=== PATIENT | male | born 1995 | race Caucasian/White ===

== ENCOUNTER 2016-10-02 10:36 | Emergency (ER) | payer OTHER ==
[2016-10-02 10:49] VITALS: BMI 27.2
--- NOTE | 2016-10-02 10:52 | PDOC ---
History of Present Illness <Louann Lyons - Last Filed: 10/02/16 12:22> - History of Present Illness Initial Comments: 10/02/16 11:15 Patient is a 21-year-old male with past medical history varicocele, epididymitis who presents to the emergency department today complaining of epigastric pain and testicular pain/swelling. Patient states that he has had both of these complaints intermittently for about a year. He states that today he has had some sharp pain in his epigastric region. He states he also feels like his feces is backing up to his stomach and that he feels constipated. He states his last bowel movement was this morning and it was normal for him in color and size. Denies diarrhea. He also states that he feels like his testicles are more swollen than usual. And he states that he feels like the pain from his left varicocele is moving to the right side. Denies fevers, chills, weakness, shortness of breath, chest pain, vomiting, diarrhea, frequency, urgency, hematuria and discharge. <Estrellita Valentine - Last Filed: 10/02/16 14:47> - General Chief Complaint: Pain Stated Complaint: ABD PAIN Time Seen by Provider: 10/02/16 10:47 Past History <Louann Lyons - Last Filed: 10/02/16 12:22> - Travel Traveled outside of the country in the last 30 days: No Close contact w/someone who was outside of country & ill: No - Immunization History Immunization Up to Date: Yes - Psycho/Social/Smoking Cessation Hx Suicidal Ideation: No Smoking History: Current every day smoker Have you smoked in the past 12 months: Yes Number of Cigarettes Smoked Daily: 3 Information on smoking cessation initiated: No 'Breaking Loose' booklet given: 08/06/15 Hx Alcohol Use: No (denies) Drug/Substance Use Hx: Yes (smokes marijuana) Substance Use Type: Alcohol, Marijuana <Estrellita Valentine - Last Filed: 10/02/16 14:47> - Past Medical History Allergies/Adverse Reactions: Allergies Allergy/AdvReac Type Severity Reaction Status Date / Time No Known Allergies Allergy Verified 10/02/16 10:49 Home Medications: Ambulatory Orders NK [No Known Home Medication] 10/02/16 Review of Systems - Review of Systems Able to Perform ROS?: Yes Is the patient limited [place] Citizen proficient: No <Estrellita Valentine - Last Filed: 10/02/16 14:47> *Physical Exam - Vital Signs Last Vital Signs Temp Pulse Resp BP Pulse Ox 98.1 F 77 18 148/89 100 10/02/16 10:46 10/02/16 10:46 10/02/16 10:46 10/02/16 10:46 10/02/16 10:46 <Louann Lyons - Last Filed: 10/02/16 12:22> - Vital Signs Last Vital Signs Temp Pulse Resp BP Pulse Ox 98.1 F 77 18 148/89 100 10/02/16 10:46 10/02/16 10:46 10/02/16 10:46 10/02/16 10:46 10/02/16 10:46 - Physical Exam Comments: 10/02/16 11:15 GENERAL: Well developed, well nourished. AAOx3. No acute distress, breathing easily on exam bed. HEENT: Normocephalic, atraumatic. PERRLA, EOMI. No conjunctival pallor. Sclera are non- icteric. Moist mucous membranes. Oropharynx is clear. NECK: Supple. Full ROM. No JVD. Carotid pulses 2+ and symmetric, without bruits. No thyromegaly. No lymphadenopathy. CARDIOVASCULAR: Regular rate and rhythm. No murmurs, rubs, or gallops. Distal pulses are 2+ and symmetric. PULMONARY: No evidence of respiratory distress. Lungs clear to auscultation bilaterally. No wheezing, rales or rhonchi. ABDOMINAL: TTP with deep palpation of the epigastric region, (+)? alonzo's sign. Diffuse tenderness with mild tenderness. Soft. Non-distended. No rebound or guarding. No organomegaly. Normoactive bowel sounds. MUSCULOSKELETAL Normal range of motion at all joints. No bony deformities or tenderness. No CVA tenderness. EXTREMITIES: No cyanosis. No clubbing. No edema. No calf tenderness. SKIN: Warm and dry. Normal capillary refill. No rashes. No jaundice. NEUROLOGICAL: Alert, awake, appropriate. Cranial nerves 2-12 intact. No deficits to light touch and temperature in face, upper extremities and lower extremities. No motor deficits in the in face, upper extremities and lower extremities. Normoreflexic in the upper and lower extremities. Normal speech. Toes are down- going bilaterally. Gait is normal without ataxia. PSYCHIATRIC: Cooperative. Good eye contact. Appropriate mood and affect. TESTICULAR: Circumcised penis, no obvious drainage, or rashes noted. Testicles are decended and in the sack, freely moving. Testicles with b/l vericoceles palpated. TTP of the R testicle. (+) cremasteric reflex present b/l <Estrellita Valentine - Last Filed: 10/02/16 14:47> Procedures - Bedside Ultrasound Bedside Ultrasound: Gallbladder Other: gallbadder and renal ultrasound see mdm <Louann Lyons - Last Filed: 10/02/16 12:22> ED Treatment Course - LABORATORY CBC & Chemistry Diagram: 10/02/16 11:43 10/02/16 11:43 - ADDITIONAL ORDERS Additional order review: Laboratory Results 10/02/16 11:43 Urine Color Straw Urine Appearance Clear Urine pH 6.0 Urine Protein Negative Urine Glucose (UA) Negative Urine Ketones Negative Urine Blood Negative Urine Nitrite Negative Urine Bilirubin Negative Urine Urobilinogen Negative Ur Leukocyte Esterase Negative 10/02/16 11:43 RBC 4.93 MCV 94.7 MCHC 33.8 RDW 13.3 MPV 8.5 Neutrophils % 53.5 Lymphocytes % 35.5 Monocytes % 7.1 Eosinophils % 3.4 Basophils % 0.5 - Medications Given in the ED: ED Medications Discontinued Medications Generic Name Dose Route Start Last Admin Trade Name Freq PRN Reason Stop Dose Admin Ondansetron HCl 4 mg 10/02/16 11:05 10/02/16 11:34 Zofran Odt - SL 10/02/16 11:06 4 mg ONCE ONE Administration Sodium Chloride 1,000 ml 10/02/16 11:02 10/02/16 11:34 Normal Saline - IV 10/02/16 11:03 1,000 ml ONCE ONE Administration <Louann Lyons - Last Filed: 10/02/16 12:22> - LABORATORY CBC & Chemistry Diagram: 10/02/16 11:43 10/02/16 11:43 <Estrellita Valentine - Last Filed: 10/02/16 14:47> Medical Decision Making - Medical Decision Making 10/02/16 12:22 focused ED ultrasound RUQ : indication epigastric pain Gallbladder scanned in two planes, saggital and transverse. no stones. no wall thickening or edema or pericholecystic fluid noted. wall measured 1.6 mm CBD measured < 4 mm negative sonographic alonzo's impressions: normal gallbladder focused ED ultrasound renal : indication suprapubic abd pain bilateral kidneys scanned no hydronephrosis noted. bladder nondistended. impression: normal renal ultrasound. alexis <Louann Lyons - Last Filed: 10/02/16 12:22> *DC/Admit/Observation/Transfer <Louann Lyons - Last Filed: 10/02/16 12:22> - Discharge Dispostion Admit: No <Estrellita Valentine - Last Filed: 10/02/16 14:47> Diagnosis at time of Disposition: Varicocele present on ultrasound of scrotum Constipation Qualifiers: Constipation type: unspecified constipation type Qualified Code(s): K59.00 - Constipation, unspecified - Discharge Dispostion Condition at time of disposition: Good - Referrals Referrals: Nano Weldon MD [Primary Care Provider] - Thien Mckeon MD [Staff Physician] - - Patient Instructions Printed Discharge Instructions: DI for Constipation Additional Instructions: Your ultrasound of your scrotum showed no change in your varicocele. There was no evidence of infection. Wear scrotal supports to help with the pain. There is no urinary tract infection. Your abdomen x-ray showed a moderate amount of stool. Eat a diet high in fiber, with plenty of fruits and vegitables. Drink plenty of water. Doing these things will help to reduce your consitpation. You should avoid binding foods such as cheeses, potatos, rices to help keep you regular. You should also try avoiding dairy to see if it helps with your stomach pain. You may take Miralax to soften your stool as necessary. Follow up with the stomach doctor, the urologist and your primary care doctor for management of your symptoms. - Post Discharge Activity Work/School Note: Back to Work
[2016-10-02] MEDS ORDERED: SODIUM CHLORIDE 0.9% 1000 ML INFUS.BAG IV ONE (11:02)
[2016-10-02] MEDS ORDERED: ONDANSETRON *ODT* 4 MG TABLET SL ONE (11:05)
[2016-10-02] MEDS ORDERED: ONDANSETRON *ODT* 4 MG TABLET ONE (11:26)
[2016-10-02 11:55] LABS: BASOPHIL 0.5 % (0-2.0); EOSINOPHIL 3.4 % (0-4.5); MCHC 33.8 g/dl (32.0-35.9); MEAN CELL VOLUME 94.7 fl (80-96); MEAN PLT VOLUME 8.5 fl (7.5-11.1); NEUTROPHILS 53.5 % (42.8-82.8); PLATELET COUNT 256 K/MM3 (134-434); RDW 13.3 % (11.9-15.9); WHITE BLOOD COUNT 6.2 K/mm3 (4.0-10.0)
[2016-10-02 11:57] LABS: URINE APPEARANCE CLEAR; URINE BILIRUBIN NEGATIVE (NEGATIVE); URINE BLOOD NEGATIVE (NEGATIVE); URINE COLOR STRAW; URINE GLUCOSE (UA) NEGATIVE (NEGATIVE); URINE KETONE NEGATIVE (NEGATIVE); URINE LEUK ESTERASE NEGATIVE (NEGATIVE); URINE NITRITE NEGATIVE (NEGATIVE); URINE PROTEIN NEGATIVE (NEGATIVE); URINE UROBILINOGEN NEGATIVE mg/dL (0.2-1.0)
[2016-10-02 12:18] LABS: ALBUMIN 4.2 g/dl (3.4-5.0); ANION GAP 3 (8-16); CALCIUM 9.8 mg/dL (8.5-10.1); CO2 30 mmol/L (21-32); CREATININE 0.8 mg/dL (0.7-1.3); GLUCOSE,RANDOM 97 mg/dL (74-106); SGOT/AST 11 U/L (15-37); SGPT/ALT 28 U/L (12-78)
[2016-10-02 12:19] LABS: ALK PHOS 61 U/L (45-117); BILIRUBIN,TOTAL 0.5 mg/dL (0.2-1.0); TOT PROT 7.6 g/dl (6.4-8.2)
--- NOTE | 2016-10-02 12:35 | PDOC ---
*Physical Exam - Vital Signs Last Vital Signs Temp Pulse Resp BP Pulse Ox 98.1 F 77 18 148/89 100 10/02/16 10:46 10/02/16 10:46 10/02/16 10:46 10/02/16 10:46 10/02/16 10:46 - Physical Exam General Appearance: Yes: Nourished, Appropriately Dressed Respiratory/Chest: positive: Lungs Clear, Normal Breath Sounds Cardiovascular: positive: Regular Rhythm, Regular Rate, S1, S2. negative: Edema Gastrointestinal/Abdominal: positive: Normal Bowel Sounds, Tender, Other ( epigastric ttp, mild suprapubic ttp, no rebound no guarding.) Musculoskeletal: positive: Normal Inspection. negative: CVA Tenderness, Decreased Range of Motion Integumentary: positive: Normal Color, Dry, Warm Neurologic: positive: Fully Oriented, Alert, Normal Mood/Affect ED Treatment Course - LABORATORY CBC & Chemistry Diagram: 10/02/16 11:43 10/02/16 11:43 - ADDITIONAL ORDERS Additional order review: Laboratory Results 10/02/16 11:43 Urine Color Straw Urine Appearance Clear Urine pH 6.0 Urine Protein Negative Urine Glucose (UA) Negative Urine Ketones Negative Urine Blood Negative Urine Nitrite Negative Urine Bilirubin Negative Urine Urobilinogen Negative Ur Leukocyte Esterase Negative 10/02/16 11:43 RBC 4.93 MCV 94.7 MCHC 33.8 RDW 13.3 MPV 8.5 Neutrophils % 53.5 Lymphocytes % 35.5 Monocytes % 7.1 Eosinophils % 3.4 Basophils % 0.5 - Medications Given in the ED: ED Medications Discontinued Medications Generic Name Dose Route Start Last Admin Trade Name Paula PRN Reason Stop Dose Admin Ondansetron HCl 4 mg 10/02/16 11:05 10/02/16 11:34 Zofran Odt - SL 10/02/16 11:06 4 mg ONCE ONE Administration Sodium Chloride 1,000 ml 10/02/16 11:02 10/02/16 11:34 Normal Saline - IV 10/02/16 11:03 1,000 ml ONCE ONE Administration Medical Decision Making - Medical Decision Making 10/02/16 12:30 21 yo M with mild epigastric pain and suprapubic abd pain, started over month ago. has seen GI year ago, told was had to change his diet. has had intermittent nasuea, no vomiting. no change to stool has large BM today. no f/c no urinary sxs. also c/o bilat testicular pain. on exam min ttp on abd exam plan : labs bedside us gb and renal, ua testicular us. antacid, labs, pt seen and discussed with Meme Rojas. agree with her assessment and plan
[2016-10-02 14:45] VITALS: BP 140/86; PULSE 68; TEMP 98.2
== END 2016-10-02 15:12 | disposition home or self-care (01) ==
LOC: JER 10:36
DX: I86.1 Scrotal varices (principal); K59.00 Constipation, unspecified; F17.210 Nicotine dependence, cigarettes, uncomplicated
CPT/HCPCS: 36415; 74020-TC; 76870-TC; 80053; 81003; 83690; 85025; 99283-25

== ENCOUNTER 2017-06-30 13:11 | Emergency (ER) | payer OTHER ==
[2017-06-30 13:15] VITALS: BP 136/79; PULSE 73; TEMP 98.5; BMI 25.0
[2017-06-30] MEDS ORDERED: DIPHTH,PERTUSS(ACELL),TET 0.5 ML DISP.SYRIN IM ONE (13:48)
--- NOTE | 2017-06-30 14:48 | PDOC ---
History of Present Illness - General Chief Complaint: Laceration Stated Complaint: LACERATION TO RT HAND Time Seen by Provider: 06/30/17 13:36 - History of Present Illness Initial Comments: 06/30/17 14:47 CHIEF COMPLAINT: laceration HISTORY OF PRESENT ILLNESS: 22 yo M with no PMH presents to fast track with laceration to L hand s/p punching window. Patient is unsure when he had his last tetanus shot. No recent travel or sick contacts. PAST MEDICAL HISTORY: Denies past medical history FAMILY HISTORY: Denies SOCIAL HISTORY: Denies tobacco, alcohol, illicit drug use. SURGICAL HISTORY: Denies ALLERGIES: No known drug allergies REVIEW OF SYSTEMS General/Constitutional: Denies fever or chills. HEENT: Denies change in vision. Denies ear pain or discharge. Denies sore throat. Cardiovascular: Denies chest pain or shortness of breath. Respiratory: Denies cough, wheezing, or hemoptysis. Gastrointestinal: Denies nausea, vomiting, diarrhea or constipation. Denies rectal bleeding. Genitourinary: Denies dysuria, frequency, or change in urination. Musculoskeletal: Denies joint or muscle swelling or pain. Denies neck or back pain. Skin: "I got a bunch of cuts on my hand after punching through a glass window." PHYSICAL EXAM General Appearance: Well-appearing, appropriately dressed. No apparent distress , no intoxication. HEENT: EOMI, PERRLA, normal ENT inspection, normal voice, TMs normal, pharynx normal. No conjunctival pallor. No photophobia, scleral icterus. Neck: Supple. Trachea midline. No tenderness, rigidity, carotid bruit, stridor , lymphadenopathy, or thyromegaly. Respiratory/Chest: Lungs CTAB. No shortness of breath, chest tenderness, respiratory distress, accessory muscle use. No crackles, rales, rhonchi, stridor , wheezing, dullness Cardiovascular: RRR. S1, S2. Musculoskeletal/Extremities: Normal inspection. FROM of all extremities, normal capillary refill. Pelvis Stable. No CVA tenderness. No tenderness to extremities, pedal edema, swelling, erythema or deformity. Integumentary: 1 cm linear superficial lac to dorsal aspect of R hand proximal to R MCP. Superficial skin avulsion to dorsal aspect of 5th R digit over DIP and to ulnar aspect of R palm. Pulses intact, FROM to all digits. Appropriate color, dry, warm. Neurologic: malted milk mixer II-XII intact. Fully oriented, alert. Appropriate mood/affect. Motor strength 5/5. No appreciable EOM palsy, facial droop or sensory deficit. \\ Past History - Past Medical History Allergies/Adverse Reactions: Allergies Allergy/AdvReac Type Severity Reaction Status Date / Time No Known Allergies Allergy Verified 06/30/17 13:13 Home Medications: Ambulatory Orders NK [No Known Home Medication] 10/02/16 COPD: No - Immunization History Immunization Up to Date: Yes - Suicide/Smoking/Psychosocial Hx Smoking History: Current every day smoker Have you smoked in the past 12 months: Yes Number of Cigarettes Smoked Daily: 3 Information on smoking cessation initiated: No 'Breaking Loose' booklet given: 08/06/15 Hx Alcohol Use: No (denies) Drug/Substance Use Hx: Yes (smokes marijuana) Substance Use Type: Alcohol, Marijuana *Physical Exam - Vital Signs Last Vital Signs Temp Pulse Resp BP Pulse Ox 98.5 F 73 18 136/79 98 06/30/17 13:13 06/30/17 13:13 06/30/17 13:13 06/30/17 13:13 06/30/17 13:13 Procedures - Consent Consent obtained: Verbal, From Patient - Laceration/Wound Repair Right Dorsal Hand Wound Length: to 2.5 cm Wound Explored: clean Wound's Depth, Shape: superficial Irrigated w/ Saline: Yes Betadine Prep: Yes Anesthesia: 1% Lidocaine Amount of Anesthetic (ccs): 2 Wound Repaired With: Sutures Suture Size/Type: 5:0 Number of Sutures: 3 Sterile Dressing Applied: Yes (xeroform dressing, gauze) ED Treatment Course - RADIOLOGY Radiology Studies Ordered: Category Date Time Status FINGER(S) RIGHT [RAD] Stat Radiology 06/30/17 13:36 Completed - Medications Given in the ED: ED Medications Discontinued Medications Generic Name Dose Route Start Last Admin Trade Name Freq PRN Reason Stop Dose Admin Diphtheria/Tetanus/Acell Pertussis 0.5 ml 06/30/17 13:48 06/30/17 14:01 Boostrix - IM 06/30/17 13:49 0.5 ml .ONCE ONE Administration Medical Decision Making - Medical Decision Making 06/30/17 14:53 22 yo M with no PMH presents to fast track with laceration to L hand s/p punching window. -xray negative for foreign body/fracture -tdap given Laceration and avulsions thoroughly irrigated with high pressure NS. Lac repair performed on lac to dorsal aspect of hand (see procedure note). Surgicell applied to skin avulsions actively bleeding. *DC/Admit/Observation/Transfer Diagnosis at time of Disposition: Laceration, Skin avulsion - Discharge Dispostion Disposition: HOME Condition at time of disposition: Stable Admit: No - Referrals - Patient Instructions Printed Discharge Instructions: DI for Laceration Repair Additional Instructions: As discussed, please keep area of laceration clean and dry for the next 24-48 hours. Afterwards you may wash with mild soap and water. Return to fast track or your primary care doctor for suture removal in 10-14 days. If you experience any redness, swelling, streaking, warmth, to the site of the cut, or develop fever, nausea, vomiting, or diarrhea, please return to the ER. - Post Discharge Activity
== END 2017-06-30 15:05 | disposition home or self-care (01) ==
LOC: JERFT 13:11
PROC: 0HQFXZZ Repair Right Hand Skin, External Approach (ICD-10-PCS; principal; 2017-06-30)
DX: S61.411A Laceration without foreign body of right hand, initial encounter (principal); W25.XXXA Contact with sharp glass, initial encounter; Y93.89 Activity, other specified; Y92.9 Unspecified place or not applicable; F17.210 Nicotine dependence, cigarettes, uncomplicated
CPT/HCPCS: 12001; 73140-TC-RT-FY; 90471; 90715; 99281-25

== ENCOUNTER 2017-07-01 17:29 | Emergency (ER) | payer OTHER ==
--- NOTE | 2017-07-01 17:32 | PDOC ---
Rapid Medical Evaluation Time Seen by Provider: 07/01/17 17:31 Medical Evaluation: Allergies Allergy/AdvReac Type Severity Reaction Status Date / Time No Known Allergies Allergy Verified 06/30/17 13:13 07/01/17 17:32 22 year old male seen 06/30 for multiple right hand lacerations after punching through glass window, presents with re-bleeding after wetting hand while trying to shower today. Hand banadaged by EMS prior to arrival. -To FT for further evaluation
[2017-07-01 17:39] VITALS: BP 123/67; PULSE 89; TEMP 98.3; BMI 24.7
--- NOTE | 2017-07-01 18:47 | PDOC ---
Suture Removal/Wound Check HPI - History of Present Illness Chief Complaint: Laceration Stated Complaint: LACERATION Time Seen by Provider: 07/01/17 17:31 - Previous ED Treatment Type of procedure performed on last visit: Yes: Laceration Repair Tetanus Immunization: Yes: Given at last ED visit - Onset of Previous Treatment Date of Occurence: 06/30/17 Comment:: 07/01/17 18:46 Patient returns with concern that he wet his hand after surgicel application and suture placement yesterday. Wounds clean, dry, non erythematous, without swelling, discharge, or warmth. Dressing to wound on ulnar aspect of hand changed. Provided patient with dressing change materials. Past History - Past Medical History Allergies/Adverse Reactions: Allergies Allergy/AdvReac Type Severity Reaction Status Date / Time No Known Allergies Allergy Verified 07/01/17 17:32 Home Medications: Ambulatory Orders NK [No Known Home Medication] 10/02/16 COPD: No - Immunization History Immunization Up to Date: Yes - Suicide/Smoking/Psychosocial Hx Smoking History: Never smoked Have you smoked in the past 12 months: Yes Number of Cigarettes Smoked Daily: 3 Information on smoking cessation initiated: No 'Breaking Loose' booklet given: 08/06/15 Hx Alcohol Use: No Drug/Substance Use Hx: No Substance Use Type: Alcohol, Marijuana *DC/Admit/Observation/Transfer Diagnosis at time of Disposition: Visit for wound check - Discharge Dispostion Disposition: HOME Condition at time of disposition: Stable Admit: No - Referrals - Patient Instructions Printed Discharge Instructions: DI for Laceration Repair - Post Discharge Activity
== END 2017-07-01 18:52 | disposition home or self-care (01) ==
LOC: JERFT 17:29
DX: Z48.01 Encounter for change or removal of surgical wound dressing (principal)
CPT/HCPCS: 99281-25

== ENCOUNTER 2017-07-12 12:33 | Emergency (ER) | payer OTHER ==
[2017-07-12 12:40] VITALS: BP 141/81; PULSE 82; TEMP 98.1; BMI 24.7
--- NOTE | 2017-07-12 13:18 | PDOC ---
Suture Removal/Wound Check HPI - History of Present Illness Chief Complaint: Suture/Staple Removal(Here) Stated Complaint: STAPLE/SUTURE REMOVAL Time Seen by Provider: 07/12/17 12:55 History Source: Yes: Patient Exam Limitations: Yes: No Limitations Treated at: [facility] ED - Previous ED Treatment Type of procedure performed on last visit: Yes: Laceration Repair Tetanus Immunization: Yes: Up to Date Past History - Travel Traveled outside of the country in the last 30 days: No Close contact w/someone who was outside of country & ill: No - Past Medical History Allergies/Adverse Reactions: Allergies Allergy/AdvReac Type Severity Reaction Status Date / Time No Known Allergies Allergy Verified 07/12/17 12:41 Home Medications: Ambulatory Orders NK [No Known Home Medication] 10/02/16 COPD: No - Immunization History Immunization Up to Date: Yes - Suicide/Smoking/Psychosocial Hx Smoking History: Never smoked Have you smoked in the past 12 months: No Number of Cigarettes Smoked Daily: 3 Information on smoking cessation initiated: No 'Breaking Loose' booklet given: 08/06/15 Hx Alcohol Use: No Drug/Substance Use Hx: No Substance Use Type: Alcohol, Marijuana Suture Removal/Wound Check PE - Physical Exam Laceration/Wound Check Symptoms: reports: None Current Severity Level: None Maximum Severity Level: None Pain Localization: None Location of Laceration/Wound: right: Hand (3 sutures to lateral aspect/ doresum right 5th MCP ) *Review of Systems - Review of Systems Able to Perform ROS?: Yes Constitutional: Yes: Symptoms Reported, See HPI HEENTM: No: Symptoms Reported Integumentary: Yes: Symptoms Reported, See HPI, Other (well approximated suture line). No: Bruising *DC/Admit/Observation/Transfer Diagnosis at time of Disposition: Visit for suture removal - Discharge Dispostion Disposition: HOME Condition at time of disposition: Stable Decision to Admit order: No - Referrals - Patient Instructions Printed Discharge Instructions: DI for Suture Removal - Post Discharge Activity
== END 2017-07-12 13:15 | disposition home or self-care (01) ==
LOC: JERFT 12:33
DX: Z48.02 Encounter for removal of sutures (principal)
CPT/HCPCS: 99281-25

== ENCOUNTER 2017-09-20 20:06 | Emergency (ER) | payer OTHER ==
[2017-09-20 20:17] VITALS: TEMP 98.5; BMI 25.0
[2017-09-20] MEDS ORDERED: LACTULOSE 20 GM/30 ML UDC (FOR ORAL USE ONLY) PO ONE (20:58)
--- NOTE | 2017-09-20 21:02 | PDOC ---
History of Present Illness - General Chief Complaint: Pain Stated Complaint: ABDOMINAL PAIN Time Seen by Provider: 09/20/17 20:29 History Source: Patient Exam Limitations: No Limitations - History of Present Illness Initial Comments: 09/20/17 20:56 Patient is 22-year-old male with history constipation x 2 years. States he has taken miralax, metamucil, and other OC products for the constipation without relief of symptoms. States she was scheduled for a colonoscopy but did not follow thru with it. He thinks that he could be having this problem because of his issue with epidydimitis. Also thinks it could be prostate CA. Today has been constipated for 4 hours, currently has no abd pain or rectal pain. has been taking metamucil daily with minimal stool. States has been pushing but never feels empty. PMD: in the clinic PMHX: as above PSOCHX: ALL: NKDA GENERAL/CONSTITUTIONAL: [No fever or chills. No weakness. No weight change.] HEAD, EYES, EARS, NOSE AND THROAT: [No change in vision. No ear pain or discharge. No sore throat.] CARDIOVASCULAR: [No chest pain or shortness of breath.] RESPIRATORY: [No cough, wheezing, or hemoptysis.] GASTROINTESTINAL: [No nausea, vomiting, (+) diarrhea or constipation. No rectal bleeding.] GENITOURINARY: [No dysuria, frequency, or change in urination.] MUSCULOSKELETAL: [No joint or muscle swelling or pain. No neck or back pain.] SKIN AND BREASTS: [No rash or easy bruising.] NEUROLOGIC: [No headache, vertigo, loss of consciousness, or loss of sensation.] PSYCHIATRIC: [No depression or anxiety.] ENDOCRINE: [No increased thirst. No abnormal weight change.] HEMATOLOGIC/LYMPHATIC: [No anemia, easy bleeding, or history of blood clots.] ALLERGIC/IMMUNOLOGIC: [No hives or skin allergy. No latex allergy.] GENERAL: [The patient is awake, alert, and fully oriented, in no acute distress. ] HEAD: [Normal with no signs of trauma.] EYES: [Pupils equal, round and reactive to light, extraocular movements intact, sclera anicteric, conjunctiva clear.] ENT: [Ears normal, nares patent, oropharynx clear without exudates. Moist mucous membranes.] NECK: [Normal range of motion, supple without lymphadenopathy, JVD, or masses.] LUNGS: [Breath sounds equal, clear to auscultation bilaterally. No wheezes, and no crackles.] HEART: [Regular rate and rhythm, normal S1 and S2 without murmur, rub.] ABDOMEN: [Soft, nontender, normoactive bowel sounds. No guarding, no rebound. No masses.] RECTAL: skin tag noted, no hemorrhoids, good tone, no stool in the vault, normal prostate EXTREMITIES: [Normal range of motion, no edema. No clubbing or cyanosis. No cords, erythema, or tenderness.] NEUROLOGICAL: [Cranial nerves II through XII grossly intact. Normal speech, normal gait.] PSYCH: [Normal mood, normal affect.] SKIN: [Warm, Dry, normal turgor, no rashes or lesions noted.] Past History - Past Medical History Allergies/Adverse Reactions: Allergies Allergy/AdvReac Type Severity Reaction Status Date / Time No Known Allergies Allergy Verified 09/20/17 20:17 Home Medications: Ambulatory Orders NK [No Known Home Medication] 10/02/16 COPD: No - Immunization History Immunization Up to Date: Yes - Suicide/Smoking/Psychosocial Hx Smoking History: Never smoked Have you smoked in the past 12 months: Yes Number of Cigarettes Smoked Daily: 3 Information on smoking cessation initiated: No 'Breaking Loose' booklet given: 08/06/15 Hx Alcohol Use: No Drug/Substance Use Hx: No Substance Use Type: Marijuana *Physical Exam - Vital Signs Last Vital Signs Temp Pulse Resp BP Pulse Ox 98.5 F 85 18 161/108 100 09/20/17 20:14 09/20/17 20:14 09/20/17 20:14 09/20/17 20:14 09/20/17 20:14 Medical Decision Making - Medical Decision Making 09/20/17 20:56 Patient is 22-year-old male with history constipation x 2 years. States he has taken miralax, metamucil, and other OC products for the constipation without relief of symptoms. will give lactulose and refer to GI and urology *DC/Admit/Observation/Transfer Diagnosis at time of Disposition: Constipation Qualifiers: Constipation type: unspecified constipation type Qualified Code(s): K59.00 - Constipation, unspecified - Discharge Dispostion Disposition: HOME Condition at time of disposition: Stable - Referrals Referrals: Tee Govea MD [Staff Physician] - Timothy Sibley MD [Staff Physician] - - Patient Instructions Printed Discharge Instructions: DI for Constipation Additional Instructions: Your Discharge Instructions: You must call primary care physician within 24 hours to arrange follow-up. Return to the Emergency Department with any new, persistent or worsening symptoms, for fever, chills, SOB, dizziness or any other concerning changes that may occur. take MiraLax 1 cap full in 4-8 oz of juice every 2 hours until bowel movement, then stop. Follow up with GI and Urology. - Post Discharge Activity
[2017-09-20] MEDS ORDERED: LACTULOSE 20 GM/30 ML UDC (FOR ORAL USE ONLY) ONE (21:10)
[2017-09-20 23:36] VITALS: BP 147/92; PULSE 77
== END 2017-09-20 22:10 | disposition home or self-care (01) ==
LOC: JER 20:06
DX: K59.00 Constipation, unspecified (principal)
CPT/HCPCS: 99282-25

== ENCOUNTER 2017-10-05 20:04 | Emergency (ER) | payer OTHER ==
[2017-10-05 20:12] VITALS: BP 141/79; PULSE 84; TEMP 98.4; BMI 25.2
[2017-10-05] MEDS ORDERED: MAGNESIUM HYDROX 2400MG/30ML ORAL SUSPENSION 30 ML CUP PO ONE (20:29)
[2017-10-05] MEDS ORDERED: DOCUSATE SODIUM 100 MG CAPSULE (FP) PO ONE ×2 (20:29→20:36)
--- NOTE | 2017-10-05 20:31 | PDOC ---
History of Present Illness - General Chief Complaint: Constipation Stated Complaint: CONSTIPATION - History of Present Illness Initial Comments: 22-year-old male with past medical history of constipation presents for re- exacerbation of the same symptoms. He states he's been feeling abdominal discomfort and constipated for about a week his last bowel movement was an hour ago. 10/05/17 20:30 Past History - Past Medical History Allergies/Adverse Reactions: Allergies Allergy/AdvReac Type Severity Reaction Status Date / Time No Known Allergies Allergy Verified 10/05/17 20:12 Home Medications: Ambulatory Orders Polyethylene Glycol 3350 [Miralax (For Bowel Prep) -] 17 gm PO DAILY #1 bottle 09/20/17 COPD: No - Immunization History Immunization Up to Date: Yes - Suicide/Smoking/Psychosocial Hx Smoking History: Never smoked Have you smoked in the past 12 months: Yes Number of Cigarettes Smoked Daily: 3 'Breaking Loose' booklet given: 08/06/15 Hx Alcohol Use: No Drug/Substance Use Hx: No Substance Use Type: Marijuana Review of Systems - Review of Systems ABD/GI: Yes: Constipated All Other Systems: Reviewed and Negative *Physical Exam - Vital Signs Last Vital Signs Temp Pulse Resp BP Pulse Ox 98.4 F 84 18 141/79 99 10/05/17 20:10 10/05/17 20:10 10/05/17 20:10 10/05/17 20:10 10/05/17 20:10 - Physical Exam Comments: HEAD: NC/AT EYES: Conjuntiva clear Ears: Canals and TM's normal NOSE: No d/c THROAT: Moist mucous membrances, oral pharanx clear, uvula midline NECK: Supple without adenopathy CARDIAC: S1 S2 LUNGS: CTA Full and Equal breath sounds ABDOMEN: Soft NT ND MS: Full ROM in all joints without edema NEUROLOGIC: No gross sensory or motor deficits, NVID SKIN: Normal color and temperature no lesions or rashes 10/05/17 20:30 Medical Decision Making - Medical Decision Making A 22-year-old with a history of intermittent constipation I will treat him with milk of magnesia and Colace and await results. Have him follow up with GI as an outpatient should his symptoms resolved today. 10/05/17 20:30 10/05/17 22:28 Symptoms relieved after enema. *DC/Admit/Observation/Transfer Diagnosis at time of Disposition: Chronic constipation - Discharge Dispostion Disposition: HOME Condition at time of disposition: Improved Decision to Admit order: No - Referrals Referrals: Nano Weldon MD [Primary Care Provider] - Amadou Horner MD [Staff Physician] - - Patient Instructions Printed Discharge Instructions: Constipation Additional Instructions: Return to the emergency room should her symptoms worsen or return. Please follow -up with gastroenterology in one to 2 days for further evaluation and treatment options. He may take Colace which she can buy [id number] 100 mg twice a day. Drink plenty of fluids [place] and clear liquids. Avoid marijuana - Post Discharge Activity
== END 2017-10-05 22:38 | disposition home or self-care (01) ==
LOC: JERFT 20:04
DX: K59.09 Other constipation (principal)
CPT/HCPCS: 99281-25